=== PATIENT | female | born 1950 | race Caucasian/White ===

== ENCOUNTER 2023-10-22 10:24 | Emergency (ER) | payer MEDICARE, SELFPAY ==
[2023-10-22 10:39] VITALS: BP 125/60; PULSE 85; RESP 16; TEMP 36.5; O2SAT 100
--- NOTE | 2023-10-22 10:49 | ED.SKABFB ---
HPI - Skin/Abscess/Foreign Bdy General Chief complaint: Skin/Abscess/Foreign Body Stated complaint: Swollen with redness knot on left side of face Time Seen by Provider: 10/22/23 10:50 Source: patient and RN notes reviewed Mode of arrival: ambulatory Limitations: dementia History of Present Illness HPI narrative: 73 year old female presents with concern for some sore on her left cheek. She reports she had a nodule on her face for a long time, and has only become swollen and tender. She denies drainage from the area. She denies any fever. MD complaint: other (Redness) Related Data Home Medications Medication Instructions Recorded Confirmed rosuvastatin 10 mg tablet mg 10/22/23 Allergies Allergy/AdvReac Type Severity Reaction Status Date / Time No Known Allergies Allergy Verified 10/22/23 10:40 Review of Systems Review of Systems: CONSTITUTIONAL: Denies malaise, chills, sweats, or fever. EYES: Denies redness, or discharge. ENT: Denies rhinorrhea, congestion, swollen lips, swollen tongue CARDIOVASCULAR: Denies chest pain, palpitations, or edema. RESPIRATORY: Denies cough or dyspnea. GASTROINTESTINAL: Denies abdominal pain, nausea, vomiting SKIN: Reports swollen tender nodules on the left cheek. Denies purulent drainage, vesicles, bullae, numbness, pain beyond proportion MUSCULOSKELETAL: Denies joint pain or myalgia. NEUROLOGIC: Denies headache. All systems reviewed & are unremarkable except as noted in HPI and below PMFSH Comments At time of signature, agree with nursing past medical, surgical, social and family history. There is no relevant family history pertinent to the presenting complaint Exam Narrative: GENERAL: Well-appearing, well-nourished, and in no acute distress. HEAD: Normocephalic, atraumatic. EYES: PERRLA, conjunctivae clear ENT: Mucous membranes moist. NECK: Supple. No lymphadenopathy CHEST: Clear to auscultation. No respiratory distress. HEART: Regular rate and rhythm. SKIN: Warm, dry. 2 confluent erythematous, tender nodules to the left cheek, no fluctuation noted approximately 3 cm x 2.5 cm in total, no surrounding erythema, induration noted. No vesicles, bullae, necrosis, ecchymosis, crepitus noted. NEURO: Alert and oriented x3. PSYCH: Normal mood and affect Course Course Emergency Course: Patient is aware of diagnosis, understands and agrees to treatment plan. Anticipatory guidance given. Patient agrees to follow-up as directed and is aware of reasons to seek care at the emergency department. Portions of this record may have been created with voice recognition software Level of Care: Express Care Visit Vital Signs Vital signs: Vital Signs Temperature 97.7 F 10/22/23 10:39 Pulse Rate 85 10/22/23 10:39 Respiratory Rate 16 10/22/23 10:39 Blood Pressure 125/60 10/22/23 10:39 Pulse Oximetry 100 10/22/23 10:39 Oxygen Delivery Room Air 10/22/23 10:39 Temperature 97.7 F 10/22/23 10:39 Pulse Rate 85 10/22/23 10:39 Respiratory Rate 16 10/22/23 10:39 Blood Pressure 125/60 10/22/23 10:39 Pulse Oximetry 100 10/22/23 10:39 Oxygen Delivery Room Air 10/22/23 10:39 Reviewed. MDM - Skin/Abscess/Foreign Bdy MDM Narrative Medical decision making narrative: Does not appear at this time to be erythema multiforme, bullous, SJS, TEN; no evidence at this time to suggest RMSF, NSTI, endocarditis or Lyme disease; patient looks well, nontoxic and is tolerating oral intake; no neurologic signs or symptoms; no headache, photophobia or neck pain; afebrile. Patient does not have history of of penetrating trauma, laceration, blunt trauma, recent surgery, immunosuppression, malignancy, obesity, alcoholism, corticosteroid use. Discussed the importance of follow-up, patient agrees; question, cellulitis versus necrotizing soft tissue infection versus abscess. Critical Care Time Critical Care Time Critical Care Time: No Discharge Plan Discharge
== END 2023-10-22 11:03 | disposition home or self-care (01) ==
PROVIDERS: Emergency Provider Nurse Practitioner; PCP Nurse Practitioner Family
DX: L08.9 Local infection of the skin and subcutaneous tissue, unspecified (principal); E78.00 Pure hypercholesterolemia, unspecified
CPT/HCPCS: 99213; G0463

== ENCOUNTER 2024-04-12 09:34 | Emergency (ER) | payer MEDICARE, SELFPAY ==
[2024-04-12 09:39] VITALS: BP 161/78; PULSE 80; RESP 14; TEMP 36.7; O2SAT 99
[2024-04-12 09:44] VITALS: BP 161/78; PULSE 80; RESP 14; TEMP 36.7; O2SAT 99
--- NOTE | 2024-04-12 10:06 | ED.GENADULT ---
HPI - General Adult General Chief complaint: Unspecified Stated complaint: Facial Swelling Source: patient Mode of arrival: ambulatory Limitations: no limitations History of Present Illness HPI narrative: Patient presents for evaluation of facial swelling. Symptom onset this morning. She noted itching to her face yesterday. Today is itching persists and she has developed erythema throughout her face. Reports burning sensation in her eyes. Denies visual disturbance or pain in her eyes. Fever, chills, nausea, vomiting, sore throat difficulty breathing or swallowing.. No new lotions, soaps, detergents, topical products. No new foods. No history of similar symptoms. Related Data Allergies Allergy/AdvReac Type Severity Reaction Status Date / Time No Known Allergies Allergy Verified 04/12/24 09:44 Review of Systems Review of Systems: CONSTITUTIONAL: Denies fever, chills, or sweats. EYES: Denies visual changes, redness, or discharge. ENT: Reports facial swelling. Denies rhinorrhea, congestion, sore throat, or otalgia. CARDIOVASCULAR: Denies chest pain, palpitations, or edema. RESPIRATORY: Denies cough or dyspnea. GASTROINTESTINAL: Denies abdominal pain, nausea, vomiting, or diarrhea. GENITOURINARY: Denies dysuria or hematuria. SKIN: Reports redness and pruritus to the face MUSCULOSKELETAL: Denies back pain, joint pain, or myalgia. NEUROLOGIC: Denies headache, numbness, dizziness, or weakness. PSYCHIATRIC: Denies anxiety or depression. [facility] Past Medical History Medical History No pertinent past medical history Surgical History Surgical History No pertinent past surgical history Family History Family History Mother Family history non-contributory Social History Social History Smoking status: Never smoker Alcohol intake: current Alcohol use details: wine in evenings Substance use: never Living arrangements: with family Gender identity (if verbalized by the patient): Female Sexual Orientation (if Verbalized by the Patient): Straight or Heterosexual Spiritual care concerns: No Exam Narrative: GENERAL: Well-appearing, well-nourished, and in no acute distress. HEAD: Normocephalic, atraumatic. EYES: PERRLA and EOMI. ENT: Nares clear, no rhinorrhea or epistaxis. There is swelling to the face. Mucous membranes moist. Oropharynx without tonsillar hypertrophy exudate or other lesions. Bilateral TMs pearly ascencio nonbulging NECK: Supple. No adenopathy or masses. No carotid bruits or JVD CHEST: Clear to auscultation. No respiratory distress. No wheezes rales or rhonchi HEART: Regular rate and rhythm. No murmur heard. Normal peripheral pulses. ABDOMEN: Soft, nontender, nondistended, normal active bowel sounds. EXTREMITIES: Normal range of motion. No edema. SKIN: There is facial erythema NEURO: No focal deficits. Alert and oriented x3. PSYCH: Normal mood and affect. Course Course Emergency Course: This is a 74-year-old female who presented for evaluation of an allergic reaction. She has no difficulty breathing or swelling. She was given Solu-Medrol while here and will discharge with prednisone. Continue with benadryl. Follow up with primary provider. Go to the ER for difficulty breathing/swallowing or worsening symptoms. Patient in agreement with plan of care. Level of Care: Express Care Visit Vital Signs Vital signs: Vital Signs Temperature 36.7 C 04/12/24 09:39 Pulse Rate 80 04/12/24 09:39 Respiratory Rate 14 04/12/24 09:39 Blood Pressure 161/78 H 04/12/24 09:39 Pulse Oximetry 99 04/12/24 09:39 Oxygen Delivery Room Air 04/12/24 09:39 Temperature 36.7 C 04/12/24 09:44 Pulse Rate 80 04/12/24 09:44 Respiratory Rat
[2024-04-12] MEDS: methylPREDNISolone SOD SUCC 125 MG VIAL IM (10:07)
== END 2024-04-12 10:30 | disposition home or self-care (01) ==
PROVIDERS: Emergency Provider Nurse Practitioner
DX: T78.40XA Allergy, unspecified, initial encounter (principal)
CPT/HCPCS: 96372; 99213; G0463; J2919